=== PATIENT | female | born 1980 ===

== ENCOUNTER 2022-01-06 05:20 | Day surgery (SDC) | payer OTHER ==
[~2022-01-06] VITALS: Ht 157.5 cm; Wt 68.0 kg
[~2022-01-06 05:20] MED LIST: ICAR-C PLUS TA1 EACH PO
== END 2022-01-06 13:30 | disposition home or self-care (01) ==
LOC: CIR.AMB 05:20
PROVIDERS: ATTEND Otolaryngology Otology & Neurotology
DX: H80.82 Other otosclerosis, left ear (principal); H90.12 Conductive hearing loss, unilateral, left ear, with unrestricted hearing on the contralateral side; G43.909 Migraine, unspecified, not intractable, without status migrainosus